=== PATIENT | female | born 1995 | race Caucasian/White ===

== ENCOUNTER 2024-11-30 21:31 | Emergency (ER) | payer SELFPAY ==
[~2024-11-30] VITALS: Ht 170.2 cm; Wt 56.7 kg
[2024-11-30 23:25] LABS: PLATELET COUNT (AUTO) 268 K/uL (150-450); RED BLOOD CELL COUNT(AUTO) 4.43 MIL/uL (4.0-5.2); RED CELL DISTRIBUTION WIDTH 12.3 % (11.5-15.0); WHITE BLOOD COUNT (AUTO) 10.1 K/uL (4.3-11.0)
[2024-11-30 23:33] LABS: CALCIUM, SERUM 8.9 mg/dL (8.5-10.1); CREATININE 0.8 mg/dL (0.6-1.3); SODIUM SERUM 139.0 mmol/L (136-145); UREA NITROGEN, BLOOD 15.0 mg/dL (7-18)
[2024-11-30 23:46] LABS: ASPARTATE AMINOTRANSFERASE 14.0 U/L (15-37); PREGNANCY TEST SERUM QUAN 0.0 mIU/mL (0-6); TOTAL PROTEIN, SERUM 8.0 g/dL (6.4-8.2)
[2024-12-01 00:01] LABS: APPEARANCE,URINE CLEAR (CLEAR); BLOOD, URINE 2+ Ery/uL (NEGATIVE); LEUKOCYTE ESTERASE ,URINE NEGATIVE (NEGATIVE); NITRITE, URINE NEGATIVE (NEGATIVE); UGLUCOSE NEGATIVE (NEGATIVE)
[2024-12-01 00:14] LABS: ADD URINE CULTURE NO; SQUAMOUS EPITHELIAL CELL,UR Few /HPF (None Seen)
[2024-12-01] MEDS ORDERED: ONDANSETRON HCL/PF 4 MG/2 ML VIAL ONE (01:33)
[2024-12-01] MEDS ORDERED: MORPHINE SULFATE INJ 2 MG/ML DISP.SYRIN ONE (01:34)
[2024-12-01] MEDS ORDERED: ONDANSETRON 4 MG TAB.RAPDIS ONE (01:35)
[2024-12-01] MEDS: ONDANSETRON 4 MG TAB.RAPDIS PO ONE (01:42)
[2024-12-01] MEDS: MORPHINE SULFATE INJ 2 MG/ML DISP.SYRIN IM ONE (01:42)
[2024-12-01 05:25] VITALS: BP 115/80; TEMP 98.2; O2SAT 99
== END 2024-12-01 05:26 | disposition home or self-care (01) ==
LOC: ER 21:37
DX: N93.9 Abnormal uterine and vaginal bleeding, unspecified (principal); R10.2 Pelvic and perineal pain
CPT/HCPCS: 99285; 76805; 85025; 81001; 36415; 80053; 84702; 96372; Q0162; J2270; J2405